=== PATIENT | female | born 1950 | race Caucasian/White ===

== ENCOUNTER → 2017-12-26 | Day surgery (SDC) | payer BC, OTHER ==
[~2017-12-26] MED LIST: LACTATED RINGER'S 1000 ML INJ 1,000 ML ONE; MELO7.5T PO; MIDAZOLAM HCL 2 MG/2 ML VIAL ONE; PROPOFOL 200 MG/20 ML AMP IV ONE; ceFAZolin 2 GM PREMIX 50 ML ONE
--- NOTE | 2017-12-26 10:08 | TN ---
cc: José Sanchez MD DATE OF SURGERY: 12/26/2017 PREOPERATIVE DIAGNOSES: 1. Microcalcifications, right breast. 2. Failed stereotactic biopsy, right breast, due to microcalcification location. 3. Family history of breast cancer. POSTOPERATIVE DIAGNOSES: 1. Microcalcifications, right breast. 2. Failed stereotactic biopsy, right breast, due to microcalcification location. 3. Family history of breast cancer. PROCEDURE PERFORMED: Needle-localized right breast biopsy. SURGEON: José Sanchez MD FREELANCE DESIGNER: ROSSI Gerber ANESTHESIA: General LMA. COMPLICATIONS: None. INDICATION FOR PROCEDURE: Ms. Lord is a pleasant 67-year-old female who was noted to have some concerning calcifications in the right breast. She underwent an attempted stereotactic core biopsy, but they were unable to do this due to the location of the microcalcifications. She was referred for surgical evaluation. Patient was seen and evaluated in the office. She gave a positive family history of breast cancer and her mammogram clearly showed concerning microcalcifications. She was offered a needle-localized right breast biopsy. Risks and benefits of needle-localized right breast biopsy were discussed with her and her mother in the office and she was agreeable. DETAILS: The patient was identified, brought to the operating room, placed supine on the operating table. After adequate general anesthesia was achieved via LMA, the right breast was prepped and draped in a standard surgical fashion. Marcaine 0.25% was injected in the skin and subcutaneous tissue around the nipple-areolar complex. A periareolar incision was made from about 7 o'clock to 11 o'clock. Subcutaneous tissue was then dissected with electrocautery Bovie. Wire came in from about the 9 o'clock position on the right breast and was going posterior. Subcutaneous flap was then raised down to where the wire was entering the skin. The wire was then transected and brought into the surgical wound. All breast tissue with a generous margin was excised down to the base of the wire using electrocautery Bovie. The specimen was then excised. A short stitch was used to label the superior border, a long stitch was used to label the lateral border. Specimen was sent to radiology for analysis. Dr. Ye called back, stating that there were plenty of calcifications within the specimen. The specimen was then sent to pathology for analysis. Wound was irrigated with normal saline solution. All bleeding points were controlled with the electrocautery Bovie. Wound was then injected with 10 mL of 0.25% Marcaine. Wound was the closed in 2 layers using 3-0 and 4-0 Vicryl. Sterile dressings were applied and the patient was awakened, brought to recovery in stable condition. MD ELIJAH Morley/PHU , 09:55 AM , 10:06 AM
== END | disposition home or self-care (01) ==
LOC: ESDC 06:47
PROVIDERS: ATTEND Surgery Trauma Surgery
DX: R92.0 Mammographic microcalcification found on diagnostic imaging of breast (principal); Z80.3 Family history of malignant neoplasm of breast
CPT/HCPCS: 00400; 19125; 88307; J0690; J2250; J3010; J7120